=== PATIENT | female | born 2005 | race Caucasian/White ===

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

== ENCOUNTER 2024-02-27 13:06 | Emergency (ER) | payer SELFPAY ==
[2024-02-27 13:28] VITALS: BP 122/69; PULSE 91; RESP 18; TEMP 98.3; BMI 23.8
[2024-02-27] MEDS ORDERED: AMOX TR/POT CLAV 875MG/125MG TABLETS (FP) ONE (14:10)
[2024-02-27] MEDS ORDERED: KETOROLAC TROMETHAMINE 30 MG/1 ML VIAL ONE (14:10)
[2024-02-27] MEDS: AMOX TR/POT CLAV 875MG/125MG TABLETS (FP) PO ONE (14:18)
[2024-02-27] MEDS: KETOROLAC TROMETHAMINE 30 MG/1 ML VIAL IM ONE (14:18)
== END 2024-02-27 14:59 | disposition home or self-care (01) ==
LOC: JERFT 13:06
PROC: 3E0133Z Introduction of Anti-inflammatory into Subcutaneous Tissue, Percutaneous Approach (ICD-10-PCS; principal; 2024-02-27)
DX: J01.90 Acute sinusitis, unspecified (principal); R09.81 Nasal congestion; J02.9 Acute pharyngitis, unspecified; R05.9 Cough, unspecified
CPT/HCPCS: 99284-25